=== PATIENT | male | born 1980 | race Caucasian/White ===

== ENCOUNTER 2023-01-19 02:52 | Emergency (ER) | payer OTHER, SELFPAY ==
--- NOTE | 2023-01-19 02:55 | ED.GENADULT ---
HPI - General Adult General Time Seen by Provider: 02:55 Date Seen: 01/19/23 Chief complaint: Laceration/Wound Stated complaint: cut on forehead Time Seen by Provider: 01/19/23 03:01 Source: patient, RN notes reviewed and old records reviewed Mode of arrival: ambulatory Limitations: no limitations History of Present Illness HPI narrative: 42-year-old male who comes in today with laceration the forehead. He bent forward and his that are radiated. No loss of consciousness and no other injuries. Unsure of last tetanus. Related Data Home Medications Medication Instructions Recorded Confirmed cetirizine 10 mg capsule (Allergy 10 mg PO QDAY PRN 01/09/22 07/24/22 Relief (cetirizine)) hydroxyzine pamoate 25 mg capsule 25 mg PO Q6H PRN 01/09/22 07/24/22 Previous Rx's Medication Instructions Recorded escitalopram oxalate 20 mg tablet 20 mg PO QDAY #90 tabs 07/24/22 fluticasone propionate 50 2 spray intranasal QDAY #16 grams 07/24/22 mcg/actuation nasal spray,suspension (Flonase Allergy Relief) Allergies Allergy/AdvReac Type Severity Reaction Status Date / Time No Known Drug Allergies Allergy Verified 07/24/22 12:59 Review of Systems Status of ROS: Reports: 10 or more systems reviewed and unremarkable except as noted in History and below [facility] Medical History (Updated 01/19/23 @ 03:07 by Malick Guerrero MD) Eustachian tube dysfunction ?H69.80 - Other specified disorders of Eustachian tube, unspecified ear (ICD-10) Recurrent major depressive disorder ?F33.9 - Major depressive disorder, recurrent, unspecified (ICD-10) ADRIEL (generalized anxiety disorder) ?F41.1 - Generalized anxiety disorder (ICD-10) Family History (Updated 01/14/22 @ 10:48 by Misha Tomas) Family/Other Breast cancer Maternal Grandfather Stroke Father Heart disease Uncle Heart disease Type 2 diabetes mellitus Social History (Updated 01/14/22 @ 10:49 by Misha Tomas) Narrative: , 1 kid, director business management, nonsmoker, social EtOH Smoking Status: Former smoker Little interest or pleasure in doing things: more than half the days Feeling down, depressed, or hopeless: more than half the days Exam Narrative: Exam Narrative: General: well nourished , NAD Head: 1 cm partial thickness laceration just medial to the right eyebrow ENT: External ears and external nose are normal Eyes: Conjunctiva clear, pupils are equal reactive, external ocular motions are intact Neck: Full spontaneous range of motion of the neck Lungs: No respiratory distress Musculoskeletal: No tenderness or deformity Neurologic: No gross focal neurologic deficits Skin: No rashes Psych: Mood and affect are appropriate Const: Vital Signs, click to edit/add: Vital Signs - 24 hr 01/19/23 02:57 Temperature 97.0 F L Pulse Rate [Left P ulse Oximeter] 79 Respiratory Rate 16 Blood Pressure [Ri ght Upper Arm] 143/99 H Pulse Oximetry 99 Oxygen Delivery Me thod Room Air Course Course Hospital Course: Patient seen and examined, prior records reviewed. Patient with a partial-thickness 1 cm laceration of the forehead. This was closed with Dermabond and patient is stable for discharge. Will update tetanus if needed. Vital Signs Vital signs: Initial Vital Signs Temperature 97.0 F L 01/19/23 02:57 Temperature Source Temporal Artery Scan 01/19/23 02:57 Pulse Rate 79 01/19/23 02:57 Pulse Rhythm Regular 01/19/23 02:57 Respiratory Rate 16 01/19/23 02:57 Blood Pressure 143/99 H 01/19/23 02:57 Blood Pressure Mean 113 H 01/19/23 02:57 Blood Pressure Position Sitting 01/19/23 02:57 Pulse Oximetry 99 01/19/23 02:57 Oxygen Delivery Method Room Air 01/19/23 02:57 Vital Signs Temperature 97.0 F L 01/19/23 02:57 Pulse Rate 79 01/19/23 02:57 Respiratory Rate 16 01/19/23 02:57 Blood Pressure 143/99 H 01/19/23 02:57 Pulse Oximetry 99 01/19/23 02:57 Oxygen Delivery Method Room Air 01/19/23 02:57 Temperature 97.0 F L 01/19/23 02:57 Pulse Rate 79 01/19/23 02:57 Respiratory Rate 16 01/19/23 02:57 Blood Pressure 143/99 H 01/19/23 02:57 Pulse Oximetry 99 01/19/23 02:57 Oxygen Delivery Method Room Air 01/19/23 02:57 Medical Decision Making Medical Records Medical records reviewed: Yes I reviewed the patient's medical records Lab Data Lab results reviewed: Yes I reviewed the patient's lab results Discharge Plan Discharge Clinical Impression: Forehead laceration Patient Disposition: Home, Self-Care Condition: Stable Instructions: Skin Adhesive Care (ED) Activity Level: No Restrictions Discharge Diet: Regular Prescriptions: No Action escitalopram oxalate 20 mg tablet 20 mg PO QDAY Qty: 90 3RF fluticasone propionate [Flonase Allergy Relief] 50 mcg/actuation spray,suspension 2 spray intranasal QDAY Qty: 16 5RF Rx Instructions: administer into each nostril hydroxyzine pamoate 25 mg capsule 25 mg PO Q6H PRN Allergy Relief (cetirizine) 10 mg capsule 10 mg PO QDAY PRN Follow Up/Referrals: Pj Lei MD [Primary Care Provider] - Stand Alone Forms: Pieceable Info Instructions
[2023-01-19 02:57] VITALS: BP 143/99; PULSE 79; RESP 16; TEMP 36.1; O2SAT 99
[2023-01-19] MEDS: TETANUS/DIPHTH/PERTUSSIS 0.5 ML SYRINGE IM (03:23)
== END 2023-01-19 03:29 | disposition home or self-care (01) ==
LOC: ED 03:12
PROVIDERS: Emergency Provider Family Medicine; PCP Family Medicine
DX: S01.81XA Laceration without foreign body of other part of head, initial encounter (principal); W22.8XXA Striking against or struck by other objects, initial encounter
CPT/HCPCS: 12001; 90471; 90715; 99283

== ENCOUNTER 2023-10-22 16:29 | Outpatient (CLI) | payer BC, SELFPAY | END 2023-10-22 16:30 | disposition home or self-care (01) | PROVIDERS: PCP Family Medicine; Visit Provider Family Medicine | DX: Z13.228 Encounter for screening for other metabolic disorders (principal); Z13.220 Encounter for screening for lipoid disorders | CPT/HCPCS: 80048; 80061 ==

== ENCOUNTER 2025-01-05 09:27 | Outpatient (CLI) | payer MEDICAID, SELFPAY | END 2025-01-05 09:28 | disposition home or self-care (01) | PROVIDERS: PCP Family Medicine; Visit Provider Family Medicine | DX: M54.9 Dorsalgia, unspecified (principal); F41.9 Anxiety disorder, unspecified; Z13.6 Encounter for screening for cardiovascular disorders; Z13.9 Encounter for screening, unspecified | CPT/HCPCS: 80048; 80061; 85025 ==